=== PATIENT | male | born 1940 | race Caucasian/White ===

== ENCOUNTER 2017-01-11 13:39 | Emergency (ER) | payer OTHER, MEDICARE ==
--- NOTE | 2017-01-11 13:48 | PDOC ---
History of Present Illness - General Chief Complaint: Eye Problem Stated Complaint: RT EYE PAIN Time Seen by Provider: 01/11/17 13:42 History Source: Patient Exam Limitations: No Limitations - History of Present Illness Initial Comments: 01/11/17 13:55 This patient is a 76-year-old male who comes in complaining of right eye pain Pt states that he awoke last night with right eye pain Has a foreign body sensation and blurry vision Denies headache He denies direct eye trauma Past Medical History: Chronic back problems, legally blind left eye Past Surgical History: Left eye laser surgery Social History: pt denies, alcohol, cigarette, and drug use Allergies: NKDA GENERAL/CONSTITUTIONAL: No: fever, chills, weakness, loss of appetite. HEAD, EYES, EARS, NOSE AND THROAT: Yes: blurry vision, right eye pain Exam: GENERAL: The patient is in no acute distress. HEAD: Normal with no signs of trauma. EYES: PERRLA, EOMI, Right sclera injected, right sclera injected, Visual acuity : 20/100, anicteric, fleurosceine demonstrates uptake in a small region just infeior to the pupil. SKIN: no rashes or lesions noted. Past History - Past Medical History Allergies/Adverse Reactions: Allergies Allergy/AdvReac Type Severity Reaction Status Date / Time shellfish derived Allergy Intermediate Hives Verified 01/11/17 14:09 iodine Allergy Unknown Hives Verified 01/11/17 14:09 meperidine HCl [From Demerol] AdvReac Intermediate HALUCINATIO Verified 14:09 NS Home Medications: Ambulatory Orders Ginkgo Biloba [place] Extract [Ginkgo] 60 mg PO DAILY 08/10/13 Fish Oil/Borage/Flax/Om3,6,9#1 [[place] 3-6-9 Complex Softgel] 400 mg PO DAILY Lutein Extract/Zeaxanthin Ext [Lutein 15 mg Softgel] 1 each PO DAILY 04/08/15 Multivit-Min/FA/Lycopen/Lutein [Centrum Silver Tablet] 1 each PO DAILY 04/08/15 Vitamin B Comp W-C [Super B-Complex & C] 1 each PO DAILY 04/08/15 Aspirin [Aspirin Ec] 81 mg PO 2 TABS DAILY 01/18/16 Anemia: No Asthma: No Cancer: No Cardiac Disorders: No CVA: No COPD: No CHF: No Dementia: No Diabetes: No GI Disorders: No Disorders: Yes HTN: No Hypercholesterolemia: Yes Liver Disease: No Seizures: No Thyroid Disease: No - Surgical History Abdominal Surgery: Yes (INGUINAL HERNIA REPAIR) Appendectomy: No Cardiac Surgery: No Cholecystectomy: No Lung Surgery: No Neurologic Surgery: Yes (REPAIR OF T12 FRACTURE 1989) Orthopedic Surgery: Yes (SPINAL FUSION 1951-WORE BRACES DURING CHILDHOOD) - Immunization History Td Vaccination: (11/23/07) - Psycho/Social/Smoking Cessation Hx Anxiety: No Suicidal Ideation: No Smoking Status: No Smoking History: Never smoked Number of Cigarettes Smoked Daily: 0 Hx Alcohol Use: No Drug/Substance Use Hx: No Substance Use Type: None Hx Substance Use Treatment: No Medical Decision Making - Medical Decision Making 01/11/17 14:22 Pt with corneal abrasion His opthalmologist is away He is legally blind left eye I will contact Opthalmology for evaluation Case reviewed Dr Leia Babcock [address] [place] [address] She will see him in the office now Does not want me to initiate any medications at this time Clinical Impression: Corneal Abrasion *DC/Admit/Observation/Transfer Diagnosis at time of Disposition: Corneal abrasion, right Qualifiers: Encounter type: initial encounter Qualified Code(s): S05.01XA - Injury of conjunctiva and corneal abrasion without foreign body, right eye, initial encounter - Discharge Dispostion Disposition: HOME Condition at time of disposition: Stable Admit: No - Referrals Referrals: Leia Babcock MD [Staff Physician] - - Patient Instructions Printed Discharge Instructions: DI for Corneal Abrasion Additional Instructions: Please follow up with Dr Babcock Return to the ER for any other concerns or complaints
[2017-01-11] MEDS ORDERED: FLUORESCEIN NA 1 EA STRIP OD ONE (13:53)
[2017-01-11] MEDS ORDERED: TETRACAINE 0.5% HCL 0.6ML DROPPER.BOTTLE OD ONE (13:53)
[2017-01-11] MEDS ORDERED: TETRACAINE 0.5% OPHTH SOLN 2 ML BOTTLE ONE (13:59)
[2017-01-11] MEDS ORDERED: FLUORESCEIN NA 1 EA STRIP ONE (13:59)
[2017-01-11 14:15] VITALS: BP 129/73; PULSE 73; TEMP 98.3; BMI 23.6
== END 2017-01-11 14:46 | disposition home or self-care (01) ==
LOC: FER 13:39
DX: S05.01XA Injury of conjunctiva and corneal abrasion without foreign body, right eye, initial encounter (principal); X58.XXXA Exposure to other specified factors, initial encounter; Y93.89 Activity, other specified; Y92.9 Unspecified place or not applicable
CPT/HCPCS: 99281-25